=== PATIENT | female | born 1995 | race African-American/Black ===

== ENCOUNTER 2024-12-13 23:59 | Emergency (ER) | payer OTHER ==
[~2024-12-13] VITALS: Ht 170.2 cm; Wt 70.3 kg
[2024-12-14 01:44] VITALS: BP 100/75; TEMP 98.2; O2SAT 97
== END 2024-12-14 01:45 | disposition home or self-care (01) ==
LOC: ER 12-14 00:03
DX: S50.11XA Contusion of right forearm, initial encounter (principal); Z60.2 Problems related to living alone; W20.8XXA Other cause of strike by thrown, projected or falling object, initial encounter; Y93.89 Activity, other specified; Y92.89 Other specified places as the place of occurrence of the external cause; Y99.8 Other external cause status
CPT/HCPCS: 73090-TC

== ENCOUNTER 2025-02-11 14:46 | Emergency (ER) | payer MEDICAID, OTHER ==
[~2025-02-11] VITALS: Ht 170.2 cm; Wt 72.6 kg
[2025-02-11] MEDS: IV NS 0.9% 1,000 ML BAG IV ONE (16:00)
[2025-02-11] MEDS: METOCLOPRAMIDE HCL 10 MG/2 ML VIAL IV ONE (16:00)
[2025-02-11] MEDS ORDERED: METOCLOPRAMIDE HCL 10 MG/2 ML VIAL ONE (16:22)
[2025-02-11] MEDS ORDERED: DICYCLOMINE HCL 10 MG CAPSULE PO ONE (16:23)
[2025-02-11] MEDS: DICYCLOMINE HCL 10 MG CAPSULE PO ONE (16:30)
[2025-02-11 16:42] LABS: PLATELET COUNT (AUTO) 327 K/uL (150-450); RED BLOOD CELL COUNT(AUTO) 4.60 MIL/uL (4.0-5.2); RED CELL DISTRIBUTION WIDTH 19.2 % (11.5-15.0); WHITE BLOOD COUNT (AUTO) 6.6 K/uL (4.3-11.0)
[2025-02-11 16:44] LABS: CALCIUM, SERUM 8.5 mg/dL (8.5-10.1); CREATININE 0.9 mg/dL (0.6-1.3); SODIUM SERUM 140.0 mmol/L (136-145); UREA NITROGEN, BLOOD 7.0 mg/dL (7-18)
[2025-02-11 16:50] LABS: ASPARTATE AMINOTRANSFERASE 22.0 U/L (15-37); TOTAL PROTEIN, SERUM 7.9 g/dL (6.4-8.2)
[2025-02-11] MEDS: POTASSIUM CHLORIDE 20 MEQ TAB.PRT.SR PO ONE (17:07)
[2025-02-11 17:56] LABS: APPEARANCE,URINE CLEAR (CLEAR); BLOOD, URINE NEGATIVE Ery/uL (NEGATIVE); LEUKOCYTE ESTERASE ,URINE NEGATIVE (NEGATIVE); NITRITE, URINE NEGATIVE (NEGATIVE); UGLUCOSE NEGATIVE (NEGATIVE)
[2025-02-11 17:58] LABS: PREGNANCY TEST URINE QUAL NEGATIVE (NEGATIVE)
[2025-02-11] MEDS ORDERED: DICY10CA13 PO (18:22)
[2025-02-11] MEDS ORDERED: AMOX-430 PO (18:22)
[2025-02-11 18:28] VITALS: BP 133/61; TEMP 98; O2SAT 99
== END 2025-02-11 18:29 | disposition home or self-care (01) ==
LOC: ER 15:09
DX: L03.312 Cellulitis of back [any part except buttock and flank] (principal); R19.7 Diarrhea, unspecified
CPT/HCPCS: 99283; 96374; 96361; 85025; 80048; 87086; 83690; 80076; 84703; 81003; 36415; J2765; J7030

== ENCOUNTER 2025-02-15 11:00 | Emergency (ER) | payer MEDICAID ==
[~2025-02-15] VITALS: Ht 170.2 cm; Wt 72.6 kg
[~2025-02-15 11:00] MED LIST: AMOX-430 PO; DICY10CA13 PO
[2025-02-15] MEDS ORDERED: SULF1TAB48 PO (12:45)
[2025-02-15] MEDS ORDERED: CEFA500C PO (12:45)
[2025-02-15 12:52] VITALS: BP 125/80; TEMP 98.7; O2SAT 99
[2025-02-15] MEDS ORDERED: BACI/NEOM/POLY B OINT PKT 1 UDPKT PACKET TP ONE (13:00)
== END 2025-02-15 12:53 | disposition home or self-care (01) ==
LOC: ER 11:03
DX: L98.9 Disorder of the skin and subcutaneous tissue, unspecified (principal); Z60.2 Problems related to living alone

== ENCOUNTER 2025-02-17 18:42 | Emergency (ER) | payer MEDICAID ==
[~2025-02-17] VITALS: Ht 167.6 cm; Wt 72.6 kg
[~2025-02-17 18:42] MED LIST changes: +CEFA500C PO; +SULF1TAB48 PO
[2025-02-17 18:52] VITALS: BP 102/66; TEMP 98.4; O2SAT 99
== END 2025-02-17 19:30 | disposition home or self-care (01) ==
LOC: ER 18:45
DX: L03.312 Cellulitis of back [any part except buttock and flank] (principal); Z60.2 Problems related to living alone